=== PATIENT | male | born 1945 | race Caucasian/White ===

== ENCOUNTER 2021-03-13 10:39 | Inpatient (IN) ==
[2021-03-13] MEDS ORDERED: Ondansetron 4 MG/2 ML VIAL IVP PRN (15:21)
[2021-03-13] MEDS ORDERED: Acetaminophen 325 MG TABLET PO PRN (15:21)
[2021-03-13] MEDS ORDERED: methylPREDNISolone 125 MG/2 ML VIAL IVP ONE (15:24)
[2021-03-13] MEDS ORDERED: Perflutren Lipid Microsphere 1.3 ML in 0.9 % Sodium Chloride 8.7 ML IVP PRN (15:35)
[2021-03-13] MEDS ORDERED: Furosemide 40 MG/4 ML VIAL IVP SCH ×2 (15:45→21:00)
[2021-03-13] MEDS: Ipratropium/Albuterol Neb 3 ML IH SCH ×3 (16:53→23:16)
[2021-03-13] MEDS: Cefepime HCl 2,000 MG in Water for inj. (sterile) 20 ML IVP SCH ×2 (18:15→23:22)
[2021-03-13] MEDS: Doxycycline 100 MG in 0.9 % Sodium Chloride Mini Bag 100 ML IVPB SCH (18:16)
[2021-03-13] MEDS: Furosemide 40 MG/4 ML VIAL IVP SCH (18:16)
[2021-03-13] MEDS: MethylPREDNISolone 40 MG/ML VIAL IVP SCH (19:37)
[2021-03-13] MEDS: Apixaban 5 MG TABLET PO SCH (19:37)
[2021-03-14] MEDS: Ipratropium/Albuterol Neb 3 ML IH SCH ×6 (03:31→23:40)
[2021-03-14] MEDS: Doxycycline 100 MG in 0.9 % Sodium Chloride Mini Bag 100 ML IVPB SCH (05:46)
[2021-03-14 06:23] LABS: Mean Platelet Volume 10.6 fL (9.4-12.4)
[2021-03-14 06:25] LABS: Hematocrit 39.6 % (37.5-50.1); Hemoglobin 12.7 g/dL (12.9-16.9); Mean Corpuscular HGB Conc 32.1 g/dL (31.6-35.5); Mean Corpuscular Hemoglobin 28.5 pg (28.0-33.3); Platelet Count 393 K/mcL (140-400); Red Blood Count 4.45 M/mcL (4.19-5.50); Red Cell Distribution Width 14.6 % (11.5-14.5); White Blood Count 26.7 K/mcL (4.3-11.1)
[2021-03-14 06:56] LABS: BUN/Creatinine Ratio 30 (6-26); Blood Urea Nitrogen 34 mg/dL (8-23); Calcium 8.7 mg/dL (8.6-10.3); Carbon Dioxide 23 mEq/L (23-29); Chloride 106 mEq/L (98-107); Glucose 149 mg/dL (70-105); Osmolality,Calculated 304 (280-300); Potassium 3.3 mEq/L (3.5-5.1); Sodium 142 mEq/L (136-145); eGFR For African Americans > 60 (> 60); eGFR For Non-African Americans > 60 (> 60)
[2021-03-14] MEDS: Cefepime HCl 2,000 MG in Water for inj. (sterile) 20 ML IVP SCH (08:32)
[2021-03-14] MEDS: Apixaban 5 MG TABLET PO SCH ×2 (08:32→20:08)
[2021-03-14] MEDS: MethylPREDNISolone 40 MG/ML VIAL IVP SCH (08:38)
[2021-03-14] MEDS: Furosemide 40 MG/4 ML VIAL IVP SCH ×2 (08:40→20:08)
[2021-03-14 08:48] LABS: ABG Base Excess -2 mEq/L (-2 to 3); ABG HCO3 22 mEq/L (21-27); ABG Oxygen Saturation 91 % (95-98); ABG PCO2 32 mmHg (35-45); ABG PH 7.44 pH Units (7.32-7.45); ABG PO2 58 mmHg (85-104); ABG TCO2 23 mEq/L (20-26); Blood Gas Modality HFOT
[2021-03-14] MEDS ORDERED: Azithromycin 500 MG in 0.9 % Sodium Chloride 250 ML IVPB SCH (11:00)
[2021-03-14] MEDS ORDERED: MethylPREDNISolone 40 MG/ML VIAL IVP SCH (16:00)
[2021-03-14] MEDS: levoFLOXacin 750 MG/150 ML 750 MG/150 ML BAG IVPB SCH (16:19)
[2021-03-14] MEDS: methylPREDNISolone 125 MG/2 ML VIAL IVP SCH (16:20)
[2021-03-14] MEDS ORDERED: *HR* Metoprolol 5 MG/5 ML VIAL IVP ONE (18:06)
[2021-03-14] MEDS ORDERED: Morphine Sulfate 2 MG/ML SYRINGE IVP ONE (18:07)
[2021-03-14] MEDS: Lactobacillus 1 EACH CAP.SPRINK PO SCH (20:08)
[2021-03-14 20:32] LABS: Magnesium 2.2 mg/dL (1.6-2.6); Phosphorous 2.9 mg/dL (2.7-4.5)
[2021-03-14 21:32] LABS: Adenovirus Not Detected (Not Detect); Bordetella Pertussis Not Detected (Not Detect); Chlamydophila pneumoniae Not Detected (Not Detect); Coronavirus 229E Not Detected (Not Detect); Coronavirus HKU1 Not Detected (Not Detect); Coronavirus NL63 Not Detected (Not Detect); Coronavirus OC43 Not Detected (Not Detect); Human Metapneumovirus Not Detected (Not Detect); Human Rhinovirus/Enterovirus Not Detected (Not Detect); Influenza A Subtype 2009 H1 Not Detected (Not Detect); Influenza B Not Detected (Not Detect); Mycoplasma pneumoniae Not Detected (Not Detect); Parainfluenza Virus 1 Not Detected (Not Detect); Parainfluenza Virus 2 Not Detected (Not Detect); Parainfluenza Virus 3 Not Detected (Not Detect); Parainfluenza Virus 4 Not Detected (Not Detect); Respiratory Syncytial Virus Not Detected (Not Detect); SARS-CoV-2 Not Detected (Not Detect)
[2021-03-15] MEDS: methylPREDNISolone 125 MG/2 ML VIAL IVP SCH ×3 (00:37→17:12)
[2021-03-15] MEDS: Ipratropium/Albuterol Neb 3 ML IH SCH ×6 (03:45→23:53)
[2021-03-15] MEDS ORDERED: *HR* Metoprolol 5 MG/5 ML VIAL IVP ONE ×2 (05:02→06:47)
[2021-03-15 05:35] LABS: Basophils % 0.1 %; Red Cell Distribution Width 15.1 % (11.5-14.5); Segmented Neutrophils % 92.7 %
[2021-03-15 05:37] LABS: Hematocrit 36.6 % (37.5-50.1); Hemoglobin 11.9 g/dL (12.9-16.9); Immature Granulocytes % 1.6 % (0-4); Lymphocytes # 0.4 K/mcL (0.6-4.6); Lymphocytes % 1.4 %; Mean Corpuscular HGB Conc 32.5 g/dL (31.6-35.5); Mean Corpuscular Hemoglobin 28.8 pg (28.0-33.3); Mean Corpuscular Volume 88.6 fL (83.0-100.0); Mean Platelet Volume 10.8 fL (9.4-12.4); Monocytes # 1.2 K/mcL (0.0-1.3); Monocytes % 4.2 %; Neutrophils # 27.3 K/mcL (1.6-8.9); Platelet Count 338 K/mcL (140-400); Red Blood Count 4.13 M/mcL (4.19-5.50); White Blood Count 29.4 K/mcL (4.3-11.1)
[2021-03-15 05:50] LABS: BUN/Creatinine Ratio 35 (6-26); Blood Urea Nitrogen 43 mg/dL (8-23); Calcium 8.6 mg/dL (8.6-10.3); Carbon Dioxide 22 mEq/L (23-29); Chloride 107 mEq/L (98-107); Glucose 184 mg/dL (70-105); Magnesium 2.2 mg/dL (1.6-2.6); Osmolality,Calculated 308 (280-300); Potassium 3.7 mEq/L (3.5-5.1); Sodium 141 mEq/L (136-145); eGFR For African Americans > 60 (> 60); eGFR For Non-African Americans 58 (> 60)
[2021-03-15 06:13] LABS: Anisocytosis 1+ (Not Present); Platelet Estimate Normal (Normal)
[2021-03-15] MEDS ORDERED: Dexamethasone Sodium Phos/PF 10 MG/ML VIAL IVP SCH (09:00)
[2021-03-15] MEDS ORDERED: lisinopriL 20 MG TABLET PO SCH (09:00)
[2021-03-15] MEDS: Lactobacillus 1 EACH CAP.SPRINK PO SCH ×2 (09:10→20:34)
[2021-03-15] MEDS: Cholecalciferol (D-3) 1,000 UNIT (25MCG) TABLET PO SCH (09:10)
[2021-03-15] MEDS: Aspirin Enteric Coated 81 MG Tablet PO SCH (09:10)
[2021-03-15] MEDS: Metoprolol XL (24 HR) Succ 50 MG TAB.ER.24H PO SCH (09:10)
[2021-03-15] MEDS: Furosemide 40 MG/4 ML VIAL IVP SCH (09:12)
[2021-03-15] MEDS: Apixaban 5 MG TABLET PO SCH ×2 (09:12→20:35)
[2021-03-15] MEDS: levoFLOXacin 750 MG/150 ML 750 MG/150 ML BAG IVPB SCH (09:13)
[2021-03-15] MEDS: Piperacillin/Tazobactam 3.375 GM in 0.9 % Sodium Chloride Mini Bag 100 ML IVPB SCH (17:13)
[2021-03-15] MEDS ORDERED: *HR* LORazepam 2 MG/ML VIAL IVP ONE (20:25)
[2021-03-15] MEDS ORDERED: *HR* LORazepam 2 MG/ML VIAL ONE (20:26)
[2021-03-15] MEDS ORDERED: Bumetanide 1 MG TABLET PO SCH (21:00)
[2021-03-16] MEDS: methylPREDNISolone 125 MG/2 ML VIAL IVP SCH ×3 (00:19→17:45)
[2021-03-16] MEDS: Piperacillin/Tazobactam 3.375 GM in 0.9 % Sodium Chloride Mini Bag 100 ML IVPB SCH ×3 (00:20→17:45)
[2021-03-16] MEDS ORDERED: *HR* LORazepam 2 MG/ML VIAL ONE (01:42)
[2021-03-16] MEDS ORDERED: *HR* LORazepam 2 MG/ML VIAL IVP ONE ×2 (01:47→21:55)
[2021-03-16] MEDS: Ipratropium/Albuterol Neb 3 ML IH SCH ×6 (03:27→23:47)
[2021-03-16] MEDS: Pantoprazole 40 MG VIAL IVP SCH (05:14)
[2021-03-16] MEDS ORDERED: ALPRAZolam 0.5 MG TABLET PO PRN (07:31)
[2021-03-16 07:39] LABS: Basophils % 0.1 %; Hematocrit 35.5 % (37.5-50.1); Hemoglobin 10.8 g/dL (12.9-16.9); Lymphocytes # 0.4 K/mcL (0.6-4.6); Lymphocytes % 1.8 %; Mean Corpuscular HGB Conc 30.4 g/dL (31.6-35.5); Mean Corpuscular Hemoglobin 27.6 pg (28.0-33.3); Mean Corpuscular Volume 90.8 fL (83.0-100.0); Mean Platelet Volume 10.9 fL (9.4-12.4); Monocytes # 0.6 K/mcL (0.0-1.3); Monocytes % 2.6 %; Neutrophils # 19.8 K/mcL (1.6-8.9); Platelet Count 223 K/mcL (140-400); Red Blood Count 3.91 M/mcL (4.19-5.50); Red Cell Distribution Width 15.5 % (11.5-14.5); Segmented Neutrophils % 94.5 %; White Blood Count 20.9 K/mcL (4.3-11.1)
[2021-03-16 08:29] LABS: Albumin 2.8 g/dL (3.5-5.7); Albumin/Globulin Ratio 0.8 (1.1-2.2); Bilirubin,Total 1.1 mg/dL (0.3-1.0); Calcium 8.7 mg/dL (8.6-10.3); Globulin 3.5 g/dL (2.4-3.5); Potassium 3.9 mEq/L (3.5-5.1); Total Protein 6.3 g/dL (6.4-8.9)
[2021-03-16] MEDS ORDERED: Spironolactone 12.5 MG TABLET PO SCH (09:00)
[2021-03-16] MEDS ORDERED: Haloperidol Lactate 5 MG/ML VIAL IVP PRN (11:09)
[2021-03-16] MEDS ORDERED: 0.9 % Sodium Chloride 1,000 ML IVC SCH (11:15)
[2021-03-16] MEDS: Aspirin Enteric Coated 81 MG Tablet PO SCH (12:04)
[2021-03-16] MEDS: Apixaban 5 MG TABLET PO SCH ×2 (12:04→21:46)
[2021-03-16] MEDS: Metoprolol XL (24 HR) Succ 50 MG TAB.ER.24H PO SCH (12:04)
[2021-03-16] MEDS: Cholecalciferol (D-3) 1,000 UNIT (25MCG) TABLET PO SCH (12:04)
[2021-03-16] MEDS: Lactobacillus 1 EACH CAP.SPRINK PO SCH ×2 (12:04→21:46)
[2021-03-16] MEDS: Dexmedetomidine HCl 400 MCG/100 ML MLS IVC SCH (13:02)
[2021-03-16] MEDS ORDERED: 0.9 % Sodium Chloride 500 ML IVC ONE (17:51)
[2021-03-16] MEDS ORDERED: 0.9 % Sodium Chloride 1,000 ML IVC ONE (18:36)
[2021-03-17] MEDS: methylPREDNISolone 125 MG/2 ML VIAL IVP SCH ×3 (00:26→16:28)
[2021-03-17] MEDS: Piperacillin/Tazobactam 3.375 GM in 0.9 % Sodium Chloride Mini Bag 100 ML IVPB SCH ×3 (00:26→16:26)
[2021-03-17] MEDS: Ipratropium/Albuterol Neb 3 ML IH SCH ×5 (03:27→19:09)
[2021-03-17] MEDS ORDERED: *HR* LORazepam 2 MG/ML VIAL ONE (04:02)
[2021-03-17 04:45] LABS: Hematocrit 37.5 % (37.5-50.1); Hemoglobin 11.3 g/dL (12.9-16.9); Mean Corpuscular HGB Conc 30.1 g/dL (31.6-35.5); Mean Corpuscular Volume 96.2 fL (83.0-100.0); Mean Platelet Volume 11.1 fL (9.4-12.4); Platelet Count 186 K/mcL (140-400); Red Cell Distribution Width 15.9 % (11.5-14.5)
[2021-03-17] MEDS: Pantoprazole 40 MG VIAL IVP SCH (05:30)
[2021-03-17 09:23] LABS: ABG Base Excess -3 mEq/L (-2 to 3); ABG HCO3 21 mEq/L (21-27); ABG Oxygen Saturation 94 % (95-98); ABG PCO2 34 mmHg (35-45); ABG PH 7.41 pH Units (7.32-7.45); ABG PO2 68 mmHg (85-104); ABG TCO2 22 mEq/L (20-26); Blood Gas Modality ST; Blood Gas VT 13 cc
[2021-03-17] MEDS: Aspirin Enteric Coated 81 MG Tablet PO SCH (09:53)
[2021-03-17] MEDS: Lactobacillus 1 EACH CAP.SPRINK PO SCH ×2 (09:54→19:09)
[2021-03-17] MEDS: Apixaban 5 MG TABLET PO SCH (09:54)
[2021-03-17] MEDS: Cholecalciferol (D-3) 1,000 UNIT (25MCG) TABLET PO SCH (09:54)
[2021-03-17] MEDS: Metoprolol XL (24 HR) Succ 50 MG TAB.ER.24H PO SCH (09:54)
[2021-03-17 11:03] LABS: ABG Base Excess -1 mEq/L (-2 to 3); ABG HCO3 23 mEq/L (21-27); ABG Oxygen Saturation 96 % (95-98); ABG PCO2 34 mmHg (35-45); ABG PH 7.45 pH Units (7.32-7.45); ABG PO2 77 mmHg (85-104); ABG TCO2 24 mEq/L (20-26); Blood Gas Modality CPAP/PS; Blood Gas Pressure Support 13 cm H2O
[2021-03-17] MEDS: Dexmedetomidine HCl 400 MCG/100 ML MLS IVC SCH (11:49)
[2021-03-17] MEDS ORDERED: *HR* LORazepam 2 MG/ML VIAL IVP PRN ×2 (12:38→14:59)
[2021-03-17] MEDS ORDERED: Haloperidol Lactate 5 MG/ML VIAL IVP PRN (12:41)
[2021-03-17] MEDS: Morphine Sulfate 2 MG/ML SYRINGE IVP PRN ×2 (13:25→16:40)
[2021-03-17 14:33] VITALS: BP 134/33; PULSE 76; TEMP 100.2
[2021-03-17 17:22] VITALS: O2SAT 97
== END 2021-03-17 20:10 | disposition expired | DRG 871 ==
LOC: 2NENU → SUATTDRO 15:21
PROVIDERS: ADMIT Internal Medicine; ATTEND Internal Medicine